=== PATIENT | male | born 1995 | race Caucasian/White ===

== ENCOUNTER 2018-05-29 12:24 | Emergency (ER) | payer SELFPAY ==
--- NOTE | 2018-05-29 12:40 | EDM.PDOC ---
ED HPI GENERAL MEDICAL PROBLEM - General Chief Complaint: General Stated Complaint: JAW INJURY Time Seen by Provider: 05/29/18 12:40 Source of Information: Reports: Patient History Limitations: Reports: No Limitations - History of Present Illness INITIAL COMMENTS - FREE TEXT/NARRATIVE: HISTORY AND PHYSICAL: History of present illness: Patient is a 22-year-old male who presents to the ED today after falling on the ice 3 days ago and hitting the left side of his jaw. He states that he did not lose consciousness but since then has not been able to open his jaw very far. He states that difficulty eating because he cannot get his mouth open. Patient states the pain is getting better but that the ability to open his jaw is not. He has had swelling of the area since. Patient denies syncope, presyncope, fever, chills, nausea, vomiting, visual changes, headache, or all other GI, symptoms. He denies any health sure he. Review of systems: As per history of present illness and below otherwise all systems reviewed and negative. Past medical history: As per history of present illness and as reviewed below otherwise noncontributory. Surgical history: As per history of present illness and as reviewed below otherwise noncontributory. Social history: See social history for further information Family history: As per history of present illness and as reviewed below otherwise noncontributory. Physical exam: General: Patient is alert, oriented, and in no acute distress. He is sitting comfortably on exam table. HEENT: Atraumatic, normocephalic, pupils equal and reactive bilaterally, negative for conjunctival pallor or scleral icterus, mucous membranes moist, TMs normal bilaterally, throat clear, neck supple, nontender, trachea midline. No drooling or trismus noted. No meningeal signs. No hot potato voice noted. There is slight edema of the left mandible from the chin to the ear. Patient does have moderate pain over the temporal mandibular joint. Patient did have distracted range of motion of jaw and was only able to open mouth about 2 cm due to pain. Lungs: Clear to auscultation, breath sounds equal bilaterally, chest nontender. Heart: S1S2, regular rate and rhythm without overt murmur Abdomen: Soft, nondistended, nontender. Negative for masses or hepatosplenomegaly. Negative for costovertebral tenderness. Pelvis: Stable nontender. Genitourinary: Deferred. Rectal: Deferred. Skin: Intact, warm, dry. No lesions or rashes noted. Extremities: Atraumatic, negative for cords or calf pain. Neurovascular unremarkable. Neuro: Awake, alert, oriented. Cranial nerves II through XII unremarkable. Cerebellum unremarkable. Motor and sensory unremarkable throughout. Exam nonfocal. Notes: Patient did not have a loss of consciousness with falling on the ice. He does have restricted immobility and use of his jaw on exam. Will do xray to look for underlying injury. Xray shows no acute fracture. Paranasal sinuses are unremarkable. Patient's vital signs are stable. Supportive care measures were reviewed and discussed. Voices understanding and is agreeable to plan of care. Denies any further questions or concerns at this time. Diagnostics: Mandibular xray Therapeutics: Toradol Prescription: Tramadol (#10) Impression: Head injury Jaw contusion Plan: 1. Rest and ice the area as able. Soft foods to help alleviate some discomfort. 2. Tylenol and/or ibuprofen as needed for pain management. Tramadol for moderate to severe pain. This medication may cause drowsiness a do not take it will driving her needing to be functioning outside of the house. 3. Please follow-up with your primary care provider in the next 1-2 days. Return to the ED as needed and as discussed. Definitive disposition and diagnosis as appropriate pending reevaluation and review of above. Left Face/Facial Pain Score (Numeric/FACES): 6 - Related Data Allergies Allergy/AdvReac Type Severity Reaction Status Date / Time No Known Allergies Allergy Verified 05/29/18 12:33 Home Meds: Home Meds . [No Known Home Meds] 05/29/18 [History] Past Medical History - Past Health History Medical/Surgical History: Denies Medical/Surgical History HEENT History: Reports: None Cardiovascular History: Reports: None Respiratory History: Reports: None Gastrointestinal History: Reports: None Genitourinary History: Reports: None Musculoskeletal History: Reports: None Neurological History: Reports: None Psychiatric History: Reports: None Endocrine/Metabolic History: Reports: None Hematologic History: Reports: None Immunologic History: Reports: None Oncologic (Cancer) History: Reports: None Dermatologic History: Reports: None - Infectious Disease History Infectious Disease History: Reports: None - Past Surgical History Head Surgeries/Procedures: Reports: None Social & Family History - Tobacco Use Smoking Status *Q: Current Every Day Smoker Years of Tobacco use: 13 Packs/Tins Daily: 2 Second Hand Smoke Exposure: No - Caffeine Use Caffeine Use: Reports: None - Recreational Drug Use Recreational Drug Use: No ED ROS GENERAL - Review of Systems Review Of Systems: ROS reveals no pertinent complaints other than HPI. ED EXAM, GENERAL - Physical Exam Exam: See Below (See dictation) Course - Vital Signs Last Recorded V/S: Last Vital Signs Temp 97.8 F 05/29/18 12:30 Pulse 113 H 05/29/18 12:30 Resp 20 05/29/18 12:30 BP 118/86 05/29/18 12:30 Pulse Ox 95 05/29/18 12:30 - Orders/Labs/Meds Meds: Medications Discontinued Medications Generic Name Dose Route Start Last Admin Trade Name Freq PRN Reason Stop Dose Admin Ketorolac Tromethamine 60 mg 05/29/18 12:43 05/29/18 12:54 Toradol IM 05/29/18 12:44 60 mg ONETIME ONE Administration Departure - Departure Time of Disposition: 14:00 Disposition: Home, Self-Care 01 Clinical Impression: Contusion of jaw Qualifiers: Encounter type: initial encounter Qualified Code(s): S00.83XA - Contusion of other part of head, initial encounter Head injury Qualifiers: Encounter type: initial encounter Qualified Code(s): S09.90XA - Unspecified injury of head, initial encounter - Discharge Information Referrals: PCP,Unknown [Primary Care Provider] - Forms: ED Department Discharge Additional Instructions: The following information is given to patients seen in the emergency department who are being discharged to home. This information is to outline your options for follow-up care. We provide all patients seen in our emergency department with a follow-up referral. The need for follow-up, as well as the timing and circumstances, are variable depending upon the specifics of your emergency department visit. If you don't have a primary care physician on staff, we will provide you with a referral. We always advise you to contact your personal physician following an emergency department visit to inform them of the circumstance of the visit and for follow-up with them and/or the need for any referrals to a consulting specialist. The emergency department will also refer you to a specialist when appropriate. This referral assures that you have the opportunity for follow-up care with a specialist. All of these measure are taken in an effort to provide you with optimal care, which includes your follow-up. Under all circumstances we always encourage you to contact your private physician who remains a resource for coordinating your care. When calling for follow-up care, please make the office aware that this follow-up is from your recent emergency room visit. If for any reason you are refused follow-up, please contact the [facility] Emergency Department at and asked to speak to the emergency department charge nurse. [facility] [address] [place] [id number] [address] 1. Rest and ice the area as able. Soft foods to help alleviate some discomfort. 2. Tylenol and/or ibuprofen as needed for pain management. Tramadol for moderate to severe pain. This medication may cause drowsiness a do not take it will driving her needing to be functioning outside of the house. 3. Please follow-up with your primary care provider in the next 1-2 days. Return to the ED as needed and as discussed.
[2018-05-29] MEDS ORDERED: Ketorolac 60 MG/2 ML SDV IM ONE (12:43)
--- NOTE | 2018-05-29 13:57 | CR ---
HISTORY: Pain after falling injury. FINDINGS: Five views of the mandible are provided. No findings for fracture noted. The visualized paranasal sinuses are unremarkable. IMPRESSION: Negative study for fracture. If there is a high index of suspicion of fracture, consider CT scan of the face for further evaluation. Dictated by Torrey Rasmussen MD @ May 29 2018 1:54PM Signed by Dr. Torrey Rasmussen @ May 29 2018 1:56PM
== END 2018-05-29 14:24 | disposition home or self-care (01) ==
LOC: MW.ED 12:24
DX: S00.83XA Contusion of other part of head, initial encounter (principal); F17.210 Nicotine dependence, cigarettes, uncomplicated; W00.0XXA Fall on same level due to ice and snow, initial encounter
CPT/HCPCS: 70110; 96372; 99283; J1885

== ENCOUNTER 2020-09-07 15:12 | Emergency (ER) | payer BC ==
--- NOTE | 2020-09-07 15:31 | EDM.PDOC ---
ED HPI GENERAL MEDICAL PROBLEM - General Chief Complaint: Upper Extremity Injury/Pain Stated Complaint: COLLARBONE PAIN Time Seen by Provider: 09/07/20 15:13 Source of Information: Reports: Patient History Limitations: Reports: No Limitations - History of Present Illness INITIAL COMMENTS - FREE TEXT/NARRATIVE: HISTORY AND PHYSICAL: History of present illness: Patient is a 24-year-old male who presents to the emergency room with complaints of right scapular and clavicular pain after a fall. Patient was using his skateboard when he fell onto his left upper extremity resulting in injuries. He denies hitting his head or having any loss of consciousness. He denies any other extremity involvement. Offers no systemic complaints. Review of systems: As per history of present illness and below otherwise all systems reviewed and negative. Past medical history: As per history of present illness and as reviewed below otherwise noncontributory. Surgical history: As per history of present illness and as reviewed below otherwise noncontributory. Social history: See social history for further information Family history: As per history of present illness and as reviewed below otherwise noncontributory. Physical exam: General: Well developed and well nourished. Alert and orientated x 3. Nontoxic in appearance and in no acute distress. Vital signs are stable and have been reviewed by me. Nursing notes were reviewed. HEENT: Tender, normocephalic, pupils equal and reactive bilaterally, negative for conjunctival pallor or scleral icterus, mucous membranes moist, TMs normal bilaterally, throat clear, neck supple, nontender, trachea midline. No drooling or trismus noted. No meningeal signs. No hot potato voice noted. Lungs: Clear to auscultation bilaterally. No wheezes, rales, or rhonchi. Chest nontender. Normal work of breathing, no accessory muscles used. Heart: S1S2, regular rate and rhythm without overt murmur, gallops, or rubs. No JVD. No peripheral edema Abdomen: Soft, nondistended, nontender. Normoactive bowel sounds. Negative for masses or costovertebral tenderness. C-spine/Back: No pinpoint vertebral tenderness upon palpation. No crepitus, step-offs or obvious deformities. Patient is ambulatory into the emergency room without difficulty or deficit. Able to rock back on heels and walk on toes. Denies any urinary or fecal incontinence. Denies any numbness, tingling or saddle paresthesia. No concerns of serious infection, fracture or cord compression, or cauda equina syndrome. Deep tendon reflexes brisk bilaterally. Skin: Intact, warm, dry. No lesions or rashes noted. Hematologic: No petechiae or purpra. Mucosa appropriate color and normal nail bed color and refill. Extremities: Moves all extremities per self without difficulty or deficits. There is obvious palpable fracture of the right clavicle, although no tenting. Mild tenderness to the distal scapula on the right. Strong radial pulses bilaterally. Neurovascular unremarkable. Neuro: Awake, alert, oriented. Cranial nerves II through XII unremarkable. Cerebellum unremarkable. Motor and sensory unremarkable throughout. Exam nonfocal. Psychiatric: Mood and affect are appropriate. Normal thought process. Answering questions appropriately. Notes: *This patient was seen and evaluated during the 2019 SARS-CoV-2 novel coronavirus pandemic period. Community viral transmission is ongoing at time of this encounter and the emergency department is operating under pandemic response procedures. Patient is a 24-year-old male who presents to the emergency room with a "cla vicle fracture" after a skateboarding accident.'s physical exam shows obvious deformity when palpating the clavicle, although there is no tenting noted. He has strong radial pulses with good cap refill. Patient is wearing a sling for comfort. He declines any other extremity involvement and remaining physical exam is unremarkable. Displaced fracture of the midclavicle without evidence of additional displaced injury. Patient was placed in a sling for comfort. Encouraged him to call Wednesday for a orthopedic appointment. I have talked with the patient about today's findings, in addition to providing specific details for plan of care. Reassessment at the time of disposition demonstrates that the patient is in no acute distress. The patient is stable for discharge, counseling was provided and we discussed in great detail signs and symptoms that would prompt them to return to the Emergency Department. Medication, follow up and supportive care measures were reviewed and discussed. Voices understanding and is agreeable to plan of care. Denies any further questions or concerns at this time. Diagnostics: Right shoulder, right clavicle Therapeutics: Sling Prescription: Percocet Impression: Clavicle fracture, right Plan: 1. You were evaluated today on an emergent basis. Your x-ray shows a displaced clavical fracture. You need to call and follow up with orthopedics for re-ev aluation and continued care. Please wear your sling to be immobile/limited use. 2. You can alternate Tylenol and ibuprofen as needed for pain and fever management. Percocet for moderate to severe pain. This medication is a narcotic so please do not take it while driving or needing to be functioning outside of the house. 3. If your symptoms should worsen, new symptoms develop or any of the signs and symptoms we discussed should arise please return to the emergency room or call 911 (if needed). Definitive disposition and diagnosis as appropriate pending reevaluation and review of above. right collar bone Pain Score (Numeric/FACES): 9 - Related Data Allergies Allergy/AdvReac Type Severity Reaction Status Date / Time No Known Allergies Allergy Verified 09/07/20 15:31 Home Meds: Home Meds Acetaminophen/oxyCODONE [Percocet 325-5 MG] 1 - 2 tab PO Q4HR PRN #30 tab 09/07/20 [Rx] Past Medical History - Past Health History Medical/Surgical History: Denies Medical/Surgical History HEENT History: Reports: None Cardiovascular History: Reports: None Respiratory History: Reports: None Gastrointestinal History: Reports: None Genitourinary History: Reports: None Musculoskeletal History: Reports: None Neurological History: Reports: None Psychiatric History: Reports: None Endocrine/Metabolic History: Reports: None Hematologic History: Reports: None Immunologic History: Reports: None Oncologic (Cancer) History: Reports: None Dermatologic History: Reports: None - Infectious Disease History Infectious Disease History: Reports: None - Past Surgical History Head Surgeries/Procedures: Reports: None Social & Family History - Caffeine Use Caffeine Use: Reports: None Review of Systems - Review of Systems Review Of Systems: Comprehensive ROS is negative, except as noted in HPI. ED EXAM, GENERAL - Physical Exam Exam: See Below (See dictation) Course - Vital Signs Last Recorded V/S: Last Vital Signs Temp 97.6 F 09/07/20 15:32 Pulse 81 09/07/20 15:32 Resp 17 09/07/20 15:32 BP 114/77 09/07/20 15:32 Pulse Ox 98 09/07/20 15:32 - Orders/Labs/Meds Orders: Active Orders 24 hr Category Date Time Status DME for Discharge [COMM] Stat Oth 09/07/20 16:51 Ordered Meds: Medications Discontinued Medications Generic Name Dose Route Start Last Admin Trade Name Freq PRN Reason Stop Dose Admin Oxycodone/Acetaminophen 1 tab 09/07/20 15:48 09/07/20 16:08 Acetaminophen/Oxycodone 325-5 Mg Tab PO 09/07/20 15:49 1 tab ONETIME ONE Administration Departure - Departure Time of Disposition: 16:48 Disposition: Home, Self-Care 01 Clinical Impression: Right clavicle fracture Qualifiers: Encounter type: initial encounter Clavicle location: shaft Fracture type: closed Fracture alignment: displaced Qualified Code(s): S42.021A - Displaced fracture of shaft of right clavicle, initial encounter for closed fracture - Discharge Information Prescriptions: Acetaminophen/oxyCODONE [Percocet 325-5 MG] 1 - 2 tab PO Q4HR PRN #30 tab PRN Reason: Pain Instructions: Clavicle Fracture Referrals: PCP,None [Primary Care Provider] - Forms: ED Department Discharge Additional Instructions: The following information is given to patients seen in the emergency department who are being discharged to home. This information is to outline your options for follow-up care. We provide all patients seen in our emergency department with a follow-up referral. The need for follow-up, as well as the timing and circumstances, are variable depending upon the specifics of your emergency department visit. If you don't have a primary care physician on staff, we will provide you with a referral. We always advise you to contact your personal physician following an emergency department visit to inform them of the circumstance of the visit and for follow-up with them and/or the need for any referrals to a consulting specialist. The emergency department will also refer you to a specialist when appropriate. This referral assures that you have the opportunity for follow-up care with a specialist. All of these measure are taken in an effort to provide you with optimal care, which includes your follow-up. Under all circumstances we always encourage you to contact your private physician who remains a resource for coordinating your care. When calling for f ollow-up care, please make the office aware that this follow-up is from your recent emergency room visit. If for any reason you are refused follow-up, please contact the [facility] Emergency Department at and asked to speak to the emergency department charge nurse. [facility] [address] [place] [address] [facility] [address] [place] [address] Thank you for choosing the [facility] emergency department in [place] for your medical needs today. It was a pleasure caring for you. Today you were seen in the emergency department for clavicle fracture. 1. You were evaluated today on an emergent basis. Your x-ray shows a displaced clavical fracture. You need follow up with orthopedics for re-evaluation and continued care. Please call to set up an appointment. Please wear your sling to be immobile/limited use. 2. You can alternate Tylenol and ibuprofen as needed for pain and fever management. Percocet for moderate to severe pain. This medication is a narcotic so please do not take it while driving or needing to be functioning outside of the house. 3. If your symptoms should worsen, new symptoms develop or any of the signs and symptoms we discussed should arise please return to the emergency room or call 911 (if needed). Sepsis Event Note (ED) - Focused Exam Vital Signs: Vital Signs Temp Pulse Resp BP Pulse Ox 09/07/20 15:32 97.6 F 81 17 114/77 98 - My Orders Last 24 Hours: My Active Orders 09/07/20 16:51 DME for Discharge [COMM] Stat - Assessment/Plan Last 24 Hours: My Active Orders 09/07/20 16:51 DME for Discharge [COMM] Stat
[2020-09-07] MEDS ORDERED: Acetaminophen/oxyCODONE 325-5 MG Tab PO ONE (15:48)
--- NOTE | 2020-09-07 16:41 | CR ---
Indication: Right shoulder pain after fall Comparison: None available. Technique: AP and scapular-Y views right shoulder were obtained Findings: There is a displaced fracture of the midclavicle. No other displaced injury is appreciated. The joint spaces are grossly preserved. The soft tissues are unremarkable. Impression: Displaced fracture of the midclavicle without evidence of additional displaced injury. Dictated by Patricio Hull MD @ 09/07/2020 4:40:[address] Patricio Hull @ Sep 07 2020 4:40PM
--- NOTE | 2020-09-07 16:50 | CR ---
Indication: Shoulder pain falling off skateboard today Two views of the right shoulder FINDINGS: Two views of the right shoulder Demonstrates comminuted right mid clavicular fracture with greater than one shaft`s widths inferior displacement of the distal clavicle. Glenohumeral articulation intact. No additional fractures Dictated by Neeru Gregory MD @ 09/07/2020 4:49:[address] Neeru Gregory @ Sep 07 2020 4:49PM
== END 2020-09-07 17:07 | disposition home or self-care (01) ==
LOC: MW.ED 15:12
DX: S42.021A Displaced fracture of shaft of right clavicle, initial encounter for closed fracture (principal); V00.131A Fall from skateboard, initial encounter; Y93.51 Activity, roller skating (inline) and skateboarding
CPT/HCPCS: 73000; 73030; 99283; A9270